=== PATIENT | male | born 1950 ===

== ENCOUNTER 2024-07-18 08:29 | Emergency (ER) | payer SELFPAY ==
[~2024-07-18] VITALS: Ht 182.9 cm; Wt 86.2 kg
[2024-07-18] MEDS ORDERED: Midazolam HCl 1MG / ML 2ML Vial ONE (08:42)
[2024-07-18] MEDS ORDERED: Midazolam HCl 1MG / ML 2ML Vial IV ONE ×4 (08:45→15:15)
[2024-07-18] MEDS ORDERED: propofoL 100 ML IV ONE (09:10)
[2024-07-18] MEDS ORDERED: fentaNYL citrate 1,000 MCG in NS 80 ML IV SCH ×2 (09:10→09:25)
[2024-07-18 09:15] LABS: BASOPHILS ABSOLUTE AUTO 0.08 K/mm3 (0.00-0.23); BASOPHILS PERCENT AUTO 1 % (0-2); EOSINOPHILS PERCENT AUTO 2 % (0-6); Hematocrit 49.2 % (37.0-53.0); IMMATURE GRAN ABSOLUTE AUTO 0.07 K/mm3 (0.00-0.10); IMMATURE GRAN PERCENT AUTO 1 % (0-1); LYMPHOCYTES PERCENT AUTO 8 % (21-46); MONOCYTES ABSOLUTE AUTO 0.66 K/mm3 (0.16-1.47); MONOCYTES PERCENT AUTO 7 % (4-13); Mean Corpuscular HGB 28.4 pg (26.0-34.0); Mean Corpuscular HGB Conc 32.5 g/dL (31.5-36.5); Mean Corpuscular Volume 87 fL (80-100); Mean Platelet Volume 9.6 fL (9.1-12.4); NEUTROPHILS ABSOLUTE AUTO 7.64 K/mm3 (1.96-9.15); NEUTROPHILS PERCENT AUTO 82 % (41-73); Platelet Count 388 K/mm3 (150-400); RDW Standard Deviation 48.4 fL (35.1-46.3); Red Blood Cell Count 5.63 M/mm3 (4.30-5.90); White Blood Cell Count 9.35 K/mm3 (4.00-11.30)
[2024-07-18 09:24] LABS: International Normalized Ratio 1.03
[2024-07-18] MEDS ORDERED: propofoL 100 ML IV SCH (09:25)
[2024-07-18] MEDS ORDERED: NiCARdipine HCL 50 MG in NS 250 ML IV SCH (09:30)
[2024-07-18 09:45] LABS: Albumin, Blood 3.2 g/dL (3.4-5.0); Albumin/Globulin Ratio 1.1 (0.8-1.8); Bilirubin, Total 0.3 mg/dL (0.1-1.0); Creatinine, Blood 0.77 mg/dL (0.60-1.20); Globulin, Blood 2.9 g/dL (2.2-4.0); Potassium, Blood 3.9 mmol/L (3.5-5.5); Total Protein, Blood 6.1 g/dL (6.4-8.2)
[2024-07-18] MEDS ORDERED: Vancomycin HCL 2,000 MG in NS 520 ML IV ONE (09:55)
[2024-07-18 09:58] LABS: Source, Urine Clean Catch
[2024-07-18] MEDS ORDERED: levETIRAcetam 4,500 MG in NS 100 ML IV ONE (10:00)
[2024-07-18] MEDS ORDERED: Ampicillin Sod 2,000 MG in NS 100 ML IV ONE (10:00)
[2024-07-18] MEDS ORDERED: CefTRIAXone Sodium 2,000 MG in NS 100 ML IV ONE (10:00)
[2024-07-18 10:01] LABS: Bilirubin, Urine Neg (Neg); Blood, Urine 1+ (Neg); Glucose Qualitative, Urine Neg (Neg); Ketones, Urine Neg (Neg); Leukocyte Esterase, Urine Neg (Neg); Nitrite, Urine Neg (Neg); Protein, Urine 1+ (Neg); Urobilinogen, Urine NORM (Normal)
[2024-07-18 10:06] LABS: Appearance, Urine Clear (Clear); Color, Urine Yellow (P-Yellow)
[2024-07-18 10:12] LABS: Bacteria Not Seen /hpf; Squamous Epithelial Cells Not Seen /hpf (Few); White Blood Cells, Urine 0-2 /hpf (0-5)
[2024-07-18] MEDS ORDERED: Midazolam HCL 50 MG in NS 40 ML IV PRN (10:20)
[2024-07-18 11:12] LABS: Base Excess Venous 4.5 mmol/L; Bicarbonate Venous 26.9 mmol/L (24.0-30.0); PCO2 Venous 51.8 mmHg (38-42); pH Blood Venous 7.37 (7.34-7.37)
[2024-07-18] MEDS ORDERED: Pantoprazole Sodium 40 MG Injection IV ONE (12:00)
[2024-07-18] MEDS ORDERED: Pantoprazole Sodium 40 MG in NS 50 ML IV SCH (13:20)
[2024-07-18] MEDS ORDERED: Octreotide Acetate 500 MCG in NS 250 ML IV SCH (13:30)
[2024-07-18 14:19] LABS: Hematocrit 50.7 % (37.0-53.0); Hemoglobin 16.9 g/dL (13.5-17.5)
[2024-07-18] MEDS ORDERED: Rocuronium Bromide 10 MG/ML 5ML Injection IV ONE (15:15)
[2024-07-18 15:50] LABS: U Amphetamine Screen Not Detected; U Barbituate Screen Not Detected; U Benzodiazapine Screen Not Detected; U Buprenorphine Screen Not Detected; U Cannabinoids Screen DETECTED; U Cocaine Screen Not Detected; U Methadone Screen Not Detected; U Methamphetamine Screen Not Detected; U Opiates Screen Not Detected; U Oxycodone Screen Not Detected; U Phencyclidine Screen Not Detected
== END 2024-07-18 18:15 ==
LOC: ER 08:29
PROVIDERS: Student in an Organized Health Care Education/Training Program
DX: R41.82 Altered mental status, unspecified (principal); J96.91 Respiratory failure, unspecified with hypoxia
CPT/HCPCS: 31500; 36415; 51702; 70450; 70496; 70498; 71045; 80053; 81001; 82140; 82803; 82947; 83605; 85014; 85018; 85025; 85610; 87040; 93005; 93010; 94002; 96365-59; 96366-59; 96367-59; 96368; 96376-59; 99285-25; J0696; J1953; J2250; J2470; J2704; J3010; J3370; J7040; J7050; Q9967

== ENCOUNTER 2024-09-25 01:57 | Emergency (ER) | payer MEDICARE ==
[~2024-09-25] VITALS: Ht 172.7 cm; Wt 54.4 kg
[2024-09-25 02:30] LABS: Hematocrit 33.8 % (37.0-53.0); Hemoglobin 9.6 g/dL (13.5-17.5); Mean Corpuscular HGB Conc 28.4 g/dL (31.5-36.5); Mean Corpuscular Volume 96 fL (80-100); NRBC ABSOLUTE 0.06 K/mm3 (0.00-0.02); NRBC Auto 0.5 /100 WBC (0.0-0.2); Platelet Count 292 K/mm3 (150-400); RDW Coefficient Variation 15.4 % (11.7-14.2); RDW Standard Deviation 54.4 fL (35.1-46.3)
[2024-09-25] MEDS ORDERED: ALTEPLASE 1 MG/ML IV SCH (02:35)
[2024-09-25 02:52] LABS: BAND PERCENT MAN 1 % (0-8); BASOPHILS ABSOLUTE MAN 0.00 K/mm3 (0.00-0.23); BASOPHILS PERCENT MAN 0 % (0-2); EOSINOPHILS ABSOLUTE MAN 0.25 K/mm3 (0.00-0.68); EOSINOPHILS PERCENT MAN 2 % (0-6); LYMPHOCYTES ABSOLUTE MAN 5.05 K/mm3 (0.84-5.20); LYMPHOCYTES PERCENT MAN 39 % (21-46); METAMYELOCYTE ABSOLUTE MAN 0.51 K/mm3 (0.00-0.00); METAMYELOCYTE PERCENT MAN 4 % (0-0); MONOCYTES ABSOLUTE MAN 1.16 K/mm3 (0.16-1.47); MONOCYTES PERCENT MAN 9 % (4-13); MYELOCYTE ABSOLUTE MAN 0.38 K/mm3 (0.00-0.00); MYELOCYTE PERCENT MAN 3 % (0-0); NEUTROPHILS ABSOLUTE MAN 5.56 K/mm3 (1.96-9.15); SEG NEUTROPHILS PERCENT MAN 42 % (41-73)
[2024-09-25 02:55] LABS: D-Dimer, Quantitative 8.97 mg/L FEU (0.00-0.52); Prothrombin Time Results 13.7 Sec (9.7-11.5)
[2024-09-25 02:56] LABS: Alanine Aminotransfer (ALT/SGP 80.0 U/L (12-78); Albumin, Blood 1.7 g/dL (3.4-5.0); Albumin/Globulin Ratio 0.4 (0.8-1.8); Anion Gap 17.0 mmol/L (3-11); Aspartate Aminotrans (AST/SGOT 113.0 U/L (12-37); Bilirubin, Total 0.3 mg/dL (0.1-1.0); Blood Urea Nitrogen 16.0 mg/dL (8-24); CO2, Blood 24.0 mmol/L (21-32); Calcium, Blood 8.9 mg/dL (8.5-10.1); Chloride, Blood 103.0 mmol/L (98-108); Creatinine, Blood 0.93 mg/dL (0.60-1.20); Globulin, Blood 4.7 g/dL (2.2-4.0); Glucose, Blood 231.0 mg/dL (70-99); Magnesium, Blood 2.4 mg/dL (1.6-2.4); Phosphorus, Blood 7.5 mg/dL (2.5-4.9); Potassium, Blood 5.5 mmol/L (3.5-5.5); Sodium, Blood 138.0 mmol/L (136-145); Thyroid Stimulating Hormone 8.11 uIU/mL (0.360-4.800); Total Protein, Blood 6.4 g/dL (6.4-8.2)
[2024-09-25] MEDS ORDERED: EpiNEPhrine 1 MG/1 ML 1ML Vial IV ONE (07:41)
[2024-09-25] MEDS ORDERED: Amiodarone HCl 50 MG / ML 3 ML Amp IV ONE (07:41)
[2024-09-25] MEDS ORDERED: Sodium Bicarb 8.4% 50 mEq Syringe IV ONE (07:41)
[2024-09-25] MEDS ORDERED: Magnesium Sulfate 500 MG / ML 2ML Vial XX ONE (07:41)
== END 2024-09-25 05:59 | disposition home or self-care (01) ==
LOC: ER 01:57
PROVIDERS: Emergency Medicine
DX: I46.9 Cardiac arrest, cause unspecified (principal); J96.01 Acute respiratory failure with hypoxia
CPT/HCPCS: 31500; 36620; 80053; 83735; 84100; 84443; 84484; 85025; 85379; 85610; 85730; 92950; 94002; 99285-25; J0165; J0282; J0461; J2997; J3475; J7050